=== PATIENT | female | born 1970 | race Caucasian/White ===

== ENCOUNTER 2017-12-19 14:38 | Outpatient (CLI) | payer OTHER ==
--- NOTE | 2017-12-19 15:44 | RAD ---
RIGHT HAND RADIOGRAPHS THREE VIEWS 12/19/17 PROVIDED CLINICAL HISTORY: Right index finger pain status post injury. FINDINGS: Overlapping of the digits on the lateral view limits evaluation. There is no evidence for fracture or other acute osseous abnormality. Alignment appears anatomic. Joint spaces appear preserved. No lytic or blastic lesions are seen. IMPRESSION: No evidence for an acute osseous abnormality. If there is persistent clinical concern, conservative m anagement and followup imaging are advised. POS: [facility]
== END 2017-12-19 14:39 | disposition home or self-care (01) ==
LOC: NAV RAD 14:38
PROVIDERS: ATTEND Internal Medicine
DX: S60.221A Contusion of right hand, initial encounter (principal)